=== PATIENT | male | born 1990 | race Caucasian/White ===

== ENCOUNTER 2016-11-22 22:41 | Emergency (ER) | payer OTHER ==
[2016-11-22 23:33] LABS: BASOPHIL 0.1 % (0-2); EOSINOPHIL 0.2 % (0-5); HCT 50.8 % (42.0-52.0); HGB 17.1 g/dl (13.2-18.0); LYMPHOCYTE 3.5 % (15-48); MCH 29.5 pg (25.0-31.0); MCHC 33.7 g/dL (32.0-36.0); MCV 87.6 fL (78.0-100.0); MPV 10.8 fL (6.0-9.5); NEUTROPHIL 88.2 % (41-80); PLT 251 K/uL (150-400); RDW 13.1 % (11.5-14.0); WBC 16.4 K/uL (4.0-10.5)
[2016-11-22 23:49] LABS: ALBUMIN 5.3 g/dL (3.5-5.0); BILIRUBIN - TOTAL 0.6 mg/dL (0.1-1.0); CREATININE 1.1 mg/dL (0.7-1.2); GLOBULIN (CALCULATION) 2.7 g/dL (2.2-4.2); POTASSIUM 4.3 mmol/L (3.5-5.1)
[2016-11-22 23:54] LABS: LACTIC ACID 2.5 mmol/L (0.5-2.2)
[2016-11-23 00:17] LABS: BILIRUBIN NEGATIVE (NEGATIVE); BLOOD NEGATIVE Ery/uL (NEGATIVE); CLARITY CLEAR (CLEAR); COLOR YELLOW (YELLOW); GLUCOSE (U) NORMAL (NORMAL); KETONE (U) 1+ (SMALL) mg/dL (NEGATIVE); LEUKOCYTES NEGATIVE Leu/uL (NEGATIVE); NITRITE NEGATIVE (NEGATIVE); PROTEIN TRACE (LOW) mg/dL (NEGATIVE); SPECIFIC GRAVITY >=1.030 (1.001-1.030); UROBILINOGEN 0.2 mg/dL (0.2-1.0); pH 5.5 (5.0-9.0)
[2016-11-23 00:21] LABS: BACTERIA TRACE; MUCOUS TRACE
== END 2016-11-23 03:17 | disposition home or self-care (01) ==
LOC: FER 22:41
PROVIDERS: Emergency Medicine
DX: T62.91XA Toxic effect of unspecified noxious substance eaten as food, accidental (unintentional), initial encounter (principal); R10.9 Unspecified abdominal pain; R11.2 Nausea with vomiting, unspecified; R19.7 Diarrhea, unspecified
CPT/HCPCS: 36415; 80053; 81001; 82150; 83605; 83690; 85025; J1170; J2405